=== PATIENT | male | born 1980 | race Caucasian/White ===

== ENCOUNTER 2017-06-20 15:56 | Emergency (ER) | payer OTHER ==
[~2017-06-20] VITALS: Ht 172.7 cm; Wt 112.2 kg
[2017-06-20] MEDS ORDERED: SODIUM CHLORIDE FLUSH 10ML SYR IVF ONE (17:30)
[2017-06-20] MEDS ORDERED: PROMETHAZINE 25MG TABLET PO PRN (17:30)
[2017-06-20 17:46] LABS: HEMATOCRIT 50.3 % (39.2-51.8); HEMOGLOBIN 17.3 g/dL (13.7-18.0); WHITE BLOOD COUNT 6.8 x10^3/uL (3.4-10)
[2017-06-20 17:56] LABS: ASPARTATE AMINO TRANSFERASE 31 U/L (15-37); BLOOD UREA NITROGEN 10 mg/dL (7-18)
[2017-06-20 18:01] LABS: IS PT STATUS REG ER OR PRE ER? YES
[2017-06-20 18:43] VITALS: BP 174/118
[2017-06-20] MEDS ORDERED: LISINOPRIL 20 MG TABLET ONE (19:09)
[2017-06-20] MEDS ORDERED: LISINOPRIL 10 MG TABLET PO ONE (19:30)
== END 2017-06-20 19:35 | disposition home or self-care (01) ==
LOC: ED 17:45
DX: I10 Essential (primary) hypertension (principal)
CPT/HCPCS: 36415; 70450; 71020; 80053; 84484; 85025; 85651; 93005; 99285; Q0169